=== PATIENT | male | born 1980 | race Two or more races ===

== ENCOUNTER 2021-09-29 18:44 | Emergency (ER) | payer OTHER, MEDICAID, SELFPAY ==
[2021-09-29 19:02] VITALS: BP 142/86; PULSE 89; RESP 16; TEMP 36.9; BMI 54.6
--- NOTE | 2021-09-29 19:47 | ED.GENADULT ---
HPI - General Adult General Chief complaint: General Medical Stated complaint: uti Time Seen by Provider: 09/29/21 19:34 Source: patient Mode of arrival: ambulatory Limitations: no limitations History of Present Illness HPI narrative: Patient comes emergency room complaining of dysuria for 3 weeks. Patient states that he had left over antibiotics/amoxicillin from an ear infection, patient has been taking it intermittently over last few days. Patient states that he has noted that at night he has to urinate more often. Patient denies hematuria. Denies any concerns for gonorrhea/chlamydia/STDs. Patient denies penile discharge. Denies testicular pain. Related Data Previous Rx's Medication Instructions Recorded phenazopyridine 100 mg tablet 100 mg PO TID #6 tab 09/29/21 Allergies Allergy/AdvReac Type Severity Reaction Status Date / Time No Known Allergies Allergy Unverified 08/14/20 17:08 Review of Systems Review of Systems: Constitutional : No Weight loss, No Fever, No Chills, No Night Sweats, No Fatigue, No Malaise ENT/Mouth : No Hearing loss, No Ear Pain, No Nasal Congestion, No Sinus Pain, No Hoarseness, No sore throat, No Rhinorrhea, No Swallowing Difficulty Eyes: No Eye Pain, No Swelling, No Redness, No Foreign Body, No Discharge, No Vision Changes Cardiovascular : No Chest Pain, No SOB, No Dyspnea on Exertion, No Orthopnea, No Edema, No Palpitations Respiratory : No Cough, No Sputum, No Wheezing, No Smoke Exposure, No Dyspnea Gastrointestinal : No Nausea, No Vomiting, No Diarrhea, No Constipation, mild suprapubic intermittent discomfort, No Hematochezia, No Melena Genitourinary : no irregular bleeding, mild dysuria Dysuria, No Urinary Frequency, No Hematuria, urinating more at night, No Urinary Incontinence, No Urgency, No Flank Pain, No Urinary Flow Changes, No Hesitancy Musculoskeletal : No joint pain, No Myalgias, No Joint Swelling Skin : No Skin Lesions, No rash Neuro : No Weakness, No Numbness, No Paresthesias, No Loss of Consciousness, No Dizziness, No Headache Psych : No Anxiety/Panic, No Depression, No SI/HI/AH/VH, No Social Issues, Heme/Lymph: No Bruising, No Bleeding,No Lymphadenopathy Endocrine : No Polyuria, No Polydipsia, No Temperature Intolerance PMFSH Social History Social History Advance Directives: No Advance Directives Information Provided: Yes Physical Exam Vital Signs: Vital Signs: Last Vital Signs Temp 98.4 F 09/29/21 19: Pulse 89 09/29/21 19:02 Resp 16 09/29/21 19:02 BP 142/86 H 09/29/21 19:02 Body Mass Index 54.6 Const: Other: Appearance: Alert. Oriented X3. No acute distress. Morbidly obese, well-appearing Eyes: Pupils equal, round and reactive to light. ENT: Pharynx normal. Neck: Normal inspection. Neck supple. No lymph nodes noted. No crepitus CVS: Normal heart rate and rhythm. Pulses normal. Normal S1 and S2 Respiratory: No respiratory distress. Breath sounds normal. No Wheezing. No rales Abdomen: Soft and nontender. No rigidity. No distention. Skin: Skin warm and dry. Normal skin color. Normal skin turgor. Extremities: No lower extremity edema. No Lacerations. No Rash Neuro: Oriented X 3. No motor deficit. No sensory deficit. Moving all extermities. No slurred speech. Course Course Course Narrative: I discussed with the patient that he has microscopic blood in the urine, also protein. Patient instructed to follow-up with his primary care physician. Urine negative for UTI. Gonorrhea and chlamydia results pending. Patient aware that if positive he will receive a phone call and treatment will be sent to his pharmacy. Patient will be given phenazopyridine for symptomatic treatment. However, patient is to follow-up with his primary care physician, repeat UA. If patient still has blood in the urine, he may need a cystoscopy. Medical Decision Making Lab Data Labs: Lab Results 09/29/21 09/29/21 Range/Units 20:13 20:36 POC Glucose 113 (60-115) mg/dL Urine Color YELLOW Urine Appearance CLEAR Urine pH 5.5 (5.0-8.0) Ur Specific [place] >= 1.030 H (1.005-1.025) Urine Protein 1+ H (NEG-TRACE) MG/DL Urine Glucose (UA) NEG (NEG) MG/DL Urine Ketones NEG (NEG) MG/DL Urine Blood 1+ H (NEG) Urine Nitrite NEG (NEG) Ur Leukocyte Esterase NEG (NEG) Urine RBC 0-2 (0) /HPF Urine WBC 0-2 (0-4) /HPF Ur Squamous Epith Cells TRACE /LPF Urine Bacteria NONE /LPF Discharge Plan Discharge Clinical Impression: Dysuria Patient Disposition: Home, Self-Care Instructions: Dysuria (ED) Additional Instructions: Please follow-up with your primary care physician tomorrow. If you have any worsening or new symptoms, please return to the emergency room or call 911 Prescriptions: New phenazopyridine 100 mg tablet 100 mg PO TID Qty: 6 RF: 0
[2021-09-29 20:18] LABS: Glucose, Whole Blood 113 mg/dL (60-115)
[2021-09-29 20:53] LABS: Appearance Urine CLEAR; Color Urine YELLOW; Glucose Urine UA NEG (NEG); Leukocyte Esterase Urine NEG (NEG); Nitrite Urine NEG (NEG); PH 5.5 (5.0-8.0); Specific Gravity - Urine >= 1.030 (1.005-1.025); UACC Culture Trigger NO; Urine Blood 1+ (NEG); Urine Ketones NEG (NEG); Urine Protein 1+ MG/DL (NEG-TRACE)
[2021-09-29 21:00] LABS: RBC Urine 0-2 /HPF (0); Squamous Epithelial Cell Urine TRACE /LPF; WBC Urine 0-2 /HPF (0-4)
[2021-09-30 10:10] LABS: CT PCR NOT DETECTED (Not Detect.); NG PCR NOT DETECTED (Not Detect.)
== END 2021-09-29 21:28 | disposition home or self-care (01) ==
PROVIDERS: Emergency Provider Emergency Medicine
DX: N39.0 Urinary tract infection, site not specified (principal); R30.0 Dysuria; Z79.899 Other long term (current) drug therapy
CPT/HCPCS: 81001; 82947; 87491; 87591; 99283

== ENCOUNTER 2021-10-17 09:35 | Emergency (ER) | payer OTHER, SELFPAY ==
--- NOTE | ~2021-10-17 | XR_ITS ---
EXAMINATION: XR CHEST CLINICAL INFORMATION: Cough COMPARISON: None TECHNIQUE: 2 views of the chest were obtained. FINDINGS: The cardiomediastinal silhouette is normal. No abnormal tracheal deviation. The lungs are normally and symmetrically expanded. No focal consolidation, changes of congestion or pleural effusions. No pneumothorax. Multilevel mild degenerative changes in the spine. Visualized upper abdomen is unremarkable. XR/XR chest 2V IMPRESSION: No radiographic evidence of pneumonia. No acute pulmonary process.
[2021-10-17 10:46] VITALS: BP 135/80; PULSE 85; RESP 16; TEMP 36.2; O2SAT 96; BMI 54.6
[2021-10-17] MEDS: predniSONE 20 MG TABLET 60 MG PO (11:20)
--- NOTE | 2021-10-17 11:52 | ED.ASTHMA ---
HPI - Asthma General Chief Complaint: Asthma Stated Complaint: asthma Time Seen by Provider: 10/17/21 11:06 History of Present Illness HPI Narrative: Patient complains of intermittent episodes of wheezing relieved by his albuterol inhaler most recently today and he is almost out of albuterol He is also concerned about a left mid back pain that he has had for several months Patient denies any chest pain no recent cough and he has no difficulty breathing at this moment in time and says his inhaler helped his wheezing and shortness of breath and chest tightness but he only has a few puffs left and needs a new inhaler Related Data Previous Rx's Medication Instructions Recorded phenazopyridine 100 mg tablet 100 mg PO TID #6 tab 09/29/21 albuterol sulfate 90 mcg/actuation 2 puff INHALATION Q4-6H PRN #8.5 g 10/17/21 aerosol inhaler prednisone 20 mg tablet 60 mg PO DAILY 5 Days #15 tab 10/17/21 Allergies Allergy/AdvReac Type Severity Reaction Status Date / Time No Known Allergies Allergy Unverified 08/14/20 17:08 Review of Systems Review of Systems: Positive for intermittent wheezing and left midback pain Negatives are no fever no chills no dizziness no weakness no headache no neck pain no chest pain no cough no abdominal pain no numbness weakness or tingling no changes to bowel or bladder no dysuria no frequency no incontinence no no numbness or weakness Yes all other systems are reviewed and are negative [facility] Past Medical History Source: nursing notes reviewed Social History Social History Advance Directives: No Physical Exam Vital Signs: Vital Signs: Last Vital Signs Temp 97.2 F 10/17/21 10:46 Pulse 85 10/17/21 10:46 Resp 16 10/17/21 10:46 BP 135/80 10/17/21 10:46 Pulse Ox 96 10/17/21 10:46 Body Mass Index 54.6 General appearance comfortable no acute distress Head is normocephalic atraumatic The neck is supple The chest is clear to auscultation bilateral with no pleuritic pain no adventitious sounds no wheezing no prolonged expiration The heart no murmur The abdomen soft nontender The extremities no calf tenderness or swelling no edema The back there is some left upper lumbar lower thoracic tenderness, there is a full range of motion there is no CVA tenderness and there is no focal bony tenderness Course Course Course Narrative: Patient with long smoking history and some pain in his left mid back had an x-ray which was negative He is advised he should get a primary care doctor for any further evaluation of his back pain or ongoing intermittent wheezing He is given a prescription for an inhaler and prednisone and will follow with primary doctor He is breathing comfortably and well appearing at this time Discharge Plan Discharge Clinical Impression: Asthma Patient Disposition: Home, Self-Care Additional Instructions: Your chest x-ray today was normal For your back pain best plan is follow with primary doctor for physical therapy and further evaluation For the change in her voice which has been going on for several months it is also a good plan to follow with the primary doctor and possibly get a referral to an title search manager Return to the ER any time for difficulty breathing chest pain worse condition or any concerns Prescriptions: New prednisone 20 mg tablet 60 mg PO DAILY 5 Days Qty: 15 RF: 0 albuterol sulfate 90 mcg/actuation HFA aerosol inhaler 2 puff inhalation Q4-6H PRN (Reason: shortness of breath or wheezing) Qty: 8.5 RF: 0 No Action phenazopyridine 100 mg tablet 100 mg PO TID Qty: 6 RF: 0 Interventions: ED Discharge Assessment Last Done: 10/17/21 12:01 Discharge Date/Time: 10/17/21 12:03
== END 2021-10-17 12:03 | disposition home or self-care (01) ==
PROVIDERS: Emergency Provider Emergency Medicine Emergency Medical Services
DX: J45.909 Unspecified asthma, uncomplicated (principal); M54.9 Dorsalgia, unspecified
CPT/HCPCS: 71046; 99283

== ENCOUNTER → 2025-07-13 04:16 | Outpatient (BNV) | payer OTHER, SELFPAY | PROVIDERS: Emergency Provider Emergency Medicine; Visit Provider Specialist | DX: R91.8 Other nonspecific abnormal finding of lung field (principal) | CPT/HCPCS: 71250 ==

== ENCOUNTER 2025-07-13 04:49 | Emergency (ER) | payer OTHER, SELFPAY ==
--- NOTE | ~2025-07-13 | CT_ITS ---
CLINICAL HISTORY: fall with chest rib pain CT chest without contrast Comparison: None provided Findings: The heart is normal size. The visualized thyroid and mediastinum are unremarkable. There is right lower lobe scar versus subsegmental atelectasis. The lungs are otherwise clear. The visualized upper abdomen is unremarkable. No acute fractures. IMPRESSION: 1. Right lower lobe scar versus subsegmental atelectasis. This document has been electronically signed by: Percy Hemphill MD on 07/13/2025 06:21:19
[2025-07-13 04:52] VITALS: BP 120/77; PULSE 64; RESP 20; TEMP 36.4; O2SAT 99; BMI 35.7
[2025-07-13 06:01] VITALS: BP 107/67; PULSE 58; RESP 15; TEMP 36.7; O2SAT 98
--- NOTE | 2025-07-13 06:01 | PC.NURSE ---
pt a&ox4, respirations even and unlabored. pt reports falling off ladder at approx. 4 feet, onto chest, pt reports he did not get seen after fall. pt now reports increased shortness of breath and chest pain on inspiration to the left chest. pt denies head strike and loc after fall. pt ambulatory to ed with steady gait. denies abd pain
--- NOTE | 2025-07-13 06:49 | ECG_ITS ---
Test Reason : CP Blood Pressure : */* mmHG Vent. Rate : 54 BPM Atrial Rate : 54 BPM P-R Int : 148 ms QRS Dur : 104 ms QT Int : 416 ms P-R-T Axes : 28 20 12 degrees QTcB Int : 394 ms Sinus bradycardia Otherwise normal ECG When compared with ECG of 02-Sep-2003 02:39, Vent. rate has decreased by 27 bpm QRS voltage has decreased Referred By: Yarelis Queen Electronically Signed By: Shai Rey
--- NOTE | 2025-07-13 06:50 | ED.GENADULT ---
HPI - General Adult General Chief complaint: General Medical Stated complaint: fell on chest a few days ago / pain Time Seen by Provider: 07/13/25 06:46 Source: patient Mode of arrival: ambulatory Limitations: no limitations History of Present Illness ED Provider: Dr. Yarelis uQeen HPI narrative: Patient comes to the emergency room complaining of chest wall pain on the left side. Patient states that 4 days ago, patient was cutting a tree, patient's slipped off a ladder and fell down 4 steps of the ladder and hit his chest. Patient has been having left-sided chest wall pain every time that he moves a certain way. Patient denies any shortness of breath. Patient states that this morning, he was forcefully coughing trying to get some phlegm out and noticed that his pain in the wall of his chest started hurting again. Patient states that as long as he does not move much, he has no pain. Patient denies cardiac history, denies any shortness of breath, not on blood thinners. Related Data Previous Rx's ?Medication ?Instructions ?Recorded phenazopyridine 100 mg tablet 100 mg PO TID 6 doses #6 tabs 09/29/21 albuterol sulfate 90 mcg/actuation 2 puff inhalation Q4-6H PRN 10/17/21 aerosol inhaler shortness of breath or wheezing #8.5 grams prednisone 20 mg tablet 60 mg (3 x 20 mg) PO DAILY 5 days 10/17/21 #15 tabs Allergies Allergy/AdvReac Type Severity Reaction Status Date / Time No Known Allergies Allergy Unverified 07/13/25 04:54 Review of Systems Review of Systems: Constitutional : No Weight loss, No Fever, No Chills, No Night Sweats, No Fatigue, No Malaise ENT/Mouth : No Hearing loss, No Ear Pain, No Nasal Congestion, No Sinus Pain, No Hoarseness, No sore throat, No Rhinorrhea, No Swallowing Difficulty Eyes: No Eye Pain, No Swelling, No Redness, No Foreign Body, No Discharge, No Vision Changes Cardiovascular : Complaining of chest wall pain, No SOB, No Dyspnea on Exertion, No Orthopnea, No Edema, No Palpitations Respiratory : No Cough, No Sputum, No Wheezing, No Smoke Exposure, No Dyspnea Gastrointestinal : No Nausea, No Vomiting, No Diarrhea, No Constipation, No abdominal Pain, No Hematochezia, No Melena Genitourinary : no irregular bleeding, No Dysuria, No Urinary Frequency, No Hematuria, No Urinary Incontinence, No Urgency, No Flank Pain, No Urinary Flow Changes, No Hesitancy Musculoskeletal : No joint pain, No Myalgias, No Joint Swelling Skin : No Skin Lesions, No rash Neuro : No Weakness, No Numbness, No Paresthesias, No Loss of Consciousness, No Dizziness, No Headache Psych : No Anxiety/Panic, No Depression, No SI/HI/AH/VH, No Social Issues, Heme/Lymph: No Bruising, No Bleeding,No Lymphadenopathy Endocrine : No Polyuria, No Polydipsia, No Temperature Intolerance [facility] Social History Social History Smoked in Last 30 Days: No Use of substances other than those prescribed or required for medical reasons: No Advance Directives: No Advance Directives Information Provided: Yes Physical Exam ED Exam Exam: Appearance: Alert. Oriented X3. No acute distress. Eyes: Pupils equal, round and reactive to light. ENT: Pharynx normal. Neck: Normal inspection. Neck supple. No lymph nodes noted. No crepitus CVS: Normal heart rate and rhythm. Pulses normal. Normal S1 and S2, reproduced chest pain to palpation especially between the ribs Respiratory: No respiratory distress. Breath sounds normal. No Wheezing. No rales Abdomen: Soft and nontender. No rigidity. No distention. Skin: Skin warm and dry. Normal skin color. Normal skin turgor. Extremities: No lower extremity edema. No Lacerations. No Rash Neuro: Oriented X 3. No motor deficit. No sensory deficit. Moving all extremities. No slurred speech. CN 2 through 12 grossly intact Psych: calm, cooperative, normal affect Vital Signs: Vital Signs - 24 hr 07/13/25 04:52 07/13/25 06:01 Temperature 97.6 F 98.1 F Pulse Rate 64 58 Respiratory Rate 20 15 Blood Pressure 120/77 107/67 Pulse Oximetry 99 98 Oxygen Delivery Method Room Air Room Air BMI result Body Mass Index 35.7 Medical Decision Making Medical Decision Making MDM Narrative: My interpretation of EKG: Normal sinus bradycardia, heart rate 54, no ST segment depression or elevation, specific T-wave inversion in lead 3, QTC 394 CT scan of the chest does not show any acute abnormality. Patient was offered pain medication, patient states that it really does not hurt that much, declines Motrin or Tylenol, declined muscle relaxant. Differential Diagnosis Differential Diagnoses: The differential diagnosis associated with the presentation includes (Musculoskeletal pain, costochondritis, rib fracture, low suspicion for ACS) Independent Interpretation I performed an independent interpretation of an: CT Scan Radiology Impression Discussion of test interpretation with radiology: I have reviewed the radiologist's reading. Radiologist Impression: The heart is normal size. The visualized thyroid and mediastinum are unremarkable. There is right lower lobe scar versus subsegmental atelectasis. The lungs are otherwise clear. The visualized upper abdomen is unremarkable. No acute fractures. IMPRESSION: 1. Right lower lobe scar versus subsegmental atelectasis Discharge Plan Discharge Clinical Impression: Chest wall contusion Patient Disposition: Home, Self-Care Instructions: Rib Contusion (ED) Additional Instructions: Please follow-up with your primary care physician tomorrow. If you have any worsening or new symptoms, please return to the emergency room or call 911 Prescriptions: No Action phenazopyridine 100 mg tablet 100 mg PO TID Qty: 6 0RF prednisone 20 mg tablet 60 mg PO DAILY 5 Days Qty: 15 0RF albuterol sulfate 90 mcg/actuation HFA aerosol inhaler 2 puff inhalation Q4-6H PRN (Reason: shortness of breath or wheezing) Qty: 8.5 0RF Stand Alone Forms: Work/School Release Print Language: [place]ian
[2025-07-13 07:05] VITALS: BP 107/67; PULSE 58; RESP 15; TEMP 36.7; O2SAT 98
== END 2025-07-13 07:06 | disposition home or self-care (01) ==
PROVIDERS: Emergency Provider Emergency Medicine
DX: S20.212A Contusion of left front wall of thorax, initial encounter (principal); R07.89 Other chest pain; R00.1 Bradycardia, unspecified; W11.XXXA Fall on and from ladder, initial encounter; Y93.H2 Activity, gardening and landscaping; Y92.007 Garden or yard of unspecified non-institutional (private) residence as the place of occurrence of the external cause; Y99.8 Other external cause status
CPT/HCPCS: 71250; 93005; 99284

== ENCOUNTER → 2025-07-13 06:49 | Outpatient (BNV) | payer OTHER, SELFPAY | PROVIDERS: Emergency Provider Emergency Medicine; Visit Provider Internal Medicine Cardiovascular Disease | DX: R00.1 Bradycardia, unspecified (principal) | CPT/HCPCS: 93010 ==